=== PATIENT | male | born 1950 | race Caucasian/White ===

== ENCOUNTER 2022-01-03 08:40 | Day surgery (SDC) | payer MEDICARE, OTHER ==
--- NOTE | 2021-10-24 12:38 | HP ---
DATE OF SURGERY: 10/25/2021 HISTORY OF PRESENT ILLNESS: The patient presents for colonoscopy. The patient had colonoscopy about five years ago. In 2004, the patient had colectomy for sigmoid colon cancer. He denies any GI signs or symptoms at this time. The patient reported that he had been off the Eliquis for an elevated D-dimer. The Doppler was negative. PAST MEDICAL HISTORY: Colon cancer. Hypertension. Hypothyroidism. Heart disease. Hyperlipidemia. Lung cancer. PAST SURGICAL HISTORY: Sigmoid colectomy. Thoracotomy for right lung cancer. ALLERGIES: NKDA. MEDICATIONS: Synthroid, atorvastatin, Eliquis, metoprolol. FAMILY HISTORY: Heart disease. SOCIAL HISTORY: Negative. REVIEW OF SYSTEMS: CONSTITUTIONAL: Denies fever or chills. CHEST: Denies shortness of breath. CVS: Denies chest pain. ABDOMEN: Denies abdominal pain. PHYSICAL EXAMINATION: GENERAL: No acute distress. CHEST: Nonlabored. No shortness of breath. CVS: Regular rate and rhythm. ABDOMEN: Soft. IMPRESSION: History of colon cancer. PLAN: Colonoscopy with Dr. Gaudencio Gutierrez. As dictated by Mary Koenig NP.
--- NOTE | 2022-01-01 11:13 | HP ---
DATE OF SURGERY: 01/03/2022 HISTORY OF PRESENT ILLNESS: The patient is a 71-year-old male who presents for five year follow up colonoscopy. The patient had a sigmoid resection in 2004 for colon cancer. He denies any GI signs or symptoms at this time. He stopped his Eliquis as he reports he had an elevated D-dimer but having a negative Doppler. PAST MEDICAL HISTORY: Hyperlipidemia. Hypothyroidism. Hypertension. Heart disease. PAST SURGICAL HISTORY: Colectomy left colon 2004. The patient had right lung cancer and had thoracotomy. ALLERGIES: NKDA. SHELLFISH. MEDICATIONS: Synthroid, atorvastatin, Eliquis, metoprolol. FAMILY HISTORY: Heart disease. SOCIAL HISTORY: Negative. REVIEW OF SYSTEMS: CONSTITUTIONAL: Denies fever or chills. CHEST: Denies shortness of breath. CVS: Denies chest pain. ABDOMEN: Denies abdominal pain. PHYSICAL EXAMINATION: GENERAL: No acute distress. CHEST: Nonlabored. No shortness of breath. CVS: Regular rate and rhythm. ABDOMEN: Soft. IMPRESSION: History of colon cancer and history of lung cancer. PLAN: Colonoscopy with Dr. Gaudencio Gutierrez. As dictated by Mary Koenig NP.
[2022-01-03] MEDS ORDERED: Lactated Ringers 1,000 ML IV SCH (09:00)
[2022-01-03] MEDS ORDERED: DIPRIVAN 200 MG/20 ML IV ONE (11:37)
[2022-01-03 12:09] VITALS: BP 123/85; PULSE 49; O2SAT 100
--- NOTE | 2022-01-03 13:17 | OP ---
SURGERY DATE/TIME: 01/03/2022 1140 PREOPERATIVE DIAGNOSIS: Three year follow up colon cancer and polyps. POSTOPERATIVE DIAGNOSIS: Normal exam. Follow up in three years. PROCEDURE: Colonoscopy complete. SURGEON: Gaudencio Gutierrez M.D. ANESTHESIA: MAC. COMPLICATIONS: None. CONDITION: Stable. INDICATION: The patient had a sigmoid colon resection for cancer back in 2004. He presents for follow up. DESCRIPTION OF PROCEDURE: He was taken to endoscopy. Left lateral decubitus position. Anal digital examination satisfactory. Rectum satisfactory. The scope advanced through the anastomosis. It was end-to-side. The blind was normal. Anastomosis was normal. The proximal limb was cannulated up to the cecum. Base of the cecum, ileocecal valve totally normal. Circumferential withdrawal was normal.
== END 2022-01-03 12:20 | disposition home or self-care (01) ==
LOC: SDC 08:40
PROVIDERS: ATTEND Surgery
DX: Z08 Encounter for follow-up examination after completed treatment for malignant neoplasm (principal); Z85.038 Personal history of other malignant neoplasm of large intestine; Z86.010 Personal history of colon polyps; Z85.118 Personal history of other malignant neoplasm of bronchus and lung; Z79.01 Long term (current) use of anticoagulants; Z79.899 Other long term (current) drug therapy
CPT/HCPCS: 99100; J2704